=== PATIENT | female | born 1980 | race Two or more races ===

== ENCOUNTER 2017-12-21 15:47 | Emergency (ER) | payer MEDICAID ==
[~2017-12-21] VITALS: Ht 165.1 cm; Wt 93.8 kg
[~2017-12-21 15:47] MED LIST: DIAZ-351 PO; DOXY-257 PO; METH4TAB3 PO; ONDA4TAB6 PO
[2017-12-21 16:57] LABS: CLARITY,URINE SLIGHTLY CLOUDY (Clear); COLOR,URINE YELLOW (Yellow); GLUCOSE, URINE NEGATIVE (Neg); KETONES,URINE NEGATIVE (Neg); LEUKOCYTE ESTERASE ,URINE TRACE (Neg); NITRITES, URINE NEGATIVE (Neg); OCCULT BLOOD,URINE MODERATE (Neg); PH,URINE 5.5 (4.8-8.0); PROTEIN,URINE NEGATIVE (Neg); UROBILINOGEN,URINE 0.2 E.U/dL (0.2-1.0)
[2017-12-21 17:01] LABS: UA COLLECTION TYPE CLN CATCH MIDSTREAM
[2017-12-21 17:06] LABS: BASOPHILS # (AUTO) 0.1 X10'3 (0-0.2); BASOPHILS % (AUTO) 0.8 % (0-1); EOSINOPHILS # (AUTO) 0.2 X10'3 (0-0.9); EOSINOPHILS % (AUTO) 1.9 % (0-6); HEMATOCRIT 43.9 % (35.0-45.0); HEMOGLOBIN 15.1 g/dl (12.0-16.0); LYMPHOCYTES # (AUTO) 1.9 X10'3 (1.1-4.8); MEAN CORPUSCULAR HEMOGLOBIN 29.6 PG (27.0-31.0); MEAN CORPUSCULAR HGB CONC 34.4 % (33.0-36.5); MEAN CORPUSCULAR VOLUME 86.2 FL (78-98); MEAN PLATELET VOLUME 8.6 FL (7.4-10.4); MONOCYTES # (AUTO) 0.5 X10'3 (0-0.9); MONOCYTES % (AUTO) 5.7 % (2-12); NEUTROPHILS # (AUTO) 6.3 X10'3 (1.8-7.7); NEUTROPHILS % (AUTO) 70.6 % (42-75); PLATELET COUNT 279 X10'3 (140-440); RED CELL DISTRIBUTION WIDTH 13.9 % (11.5-14.5)
[2017-12-21 17:09] LABS: BACTERIA,URINE 3+ /HPF (Neg); SQUAMOUS EPITHELIAL CELL,UR MODERATE /LPF (FEW); WBC,URINE 0-4 /HPF (0-4)
[2017-12-21 17:19] LABS: ALANINE AMINOTRANSFERASE 13 U/L (12-78); ALBUMIN 4.2 G/DL (3.4-5.0); ALKALINE PHOSPHATASE 56 IU/L (46-116); ANION GAP 9 (8-16); ASPARTATE AMINO TRANSFERASE 10 U/L (10-37); BILIRUBIN,TOTAL 0.5 MG/DL (0.1-1.0); BLOOD UREA NITROGEN 12 MG/DL (7-18); BUN/CREATININE RATIO 15.2 (6.6-38.0); CHLORIDE 103 MMOL/L (99-107); CREATININE 0.79 MG/DL (0.40-0.90); GLUCOSE 91 MG/DL (70-104); POTASSIUM 3.8 MMOL/L (3.5-5.1); SODIUM 140 MMOL/L (135-145); TOTAL PROTEIN 8.5 G/DL (6.4-8.2); eGFR 83 ML/MIN
[2017-12-21] MEDS ORDERED: normal saline 1000ml 1,000 ML IV ONE (17:25)
[2017-12-21] MEDS ORDERED: ondansetron/PF 4mg/2ml inj IV ONE (17:25)
[2017-12-21] MEDS ORDERED: ketorolac trometh. 30mg/ml inj. IV ONE (17:25)
[2017-12-21 17:45] LABS: INR 1.1 INR
[2017-12-21] MEDS ORDERED: CIPR-259 PO (19:08)
[2017-12-21] MEDS ORDERED: PHEN-716 PO (19:08)
[2017-12-21 19:20] VITALS: BP 115/72
== END 2017-12-21 19:21 | disposition home or self-care (01) ==
LOC: ER 15:48
DX: N39.0 Urinary tract infection, site not specified (principal); Z90.49 Acquired absence of other specified parts of digestive tract; Z88.0 Allergy status to penicillin; Z88.5 Allergy status to narcotic agent; Z88.8 Allergy status to other drugs, medicaments and biological substances; Z79.899 Other long term (current) drug therapy
CPT/HCPCS: 36415; 74176; 80053; 81001; 85025; 85610; 87088; 96361; 96374; 96375; 99285; J1885; J2405; J7030; 99284

== ENCOUNTER 2021-11-03 15:06 | Emergency (ER) | payer OTHER, MEDICAID ==
[~2021-11-03] VITALS: Ht 165.1 cm; Wt 90.0 kg
[~2021-11-03 15:06] MED LIST changes: -DOXY-257 PO; +DOXY-327 PO; +PHEN-716 PO
[2021-11-03] MEDS ORDERED: IBUP-1984 PO (17:11)
[2021-11-03 17:29] VITALS: BP 132/86
== END 2021-11-03 17:31 | disposition home or self-care (01) ==
LOC: ER 15:06
DX: S66.812A Strain of other specified muscles, fascia and tendons at wrist and hand level, left hand, initial encounter (principal); M25.522 Pain in left elbow; R20.2 Paresthesia of skin; Z90.49 Acquired absence of other specified parts of digestive tract; Z88.0 Allergy status to penicillin; Z88.8 Allergy status to other drugs, medicaments and biological substances; Z88.6 Allergy status to analgesic agent; Z79.2 Long term (current) use of antibiotics; Z79.899 Other long term (current) drug therapy; X58.XXXA Exposure to other specified factors, initial encounter; Y93.89 Activity, other specified; Y92.89 Other specified places as the place of occurrence of the external cause; Y99.8 Other external cause status
CPT/HCPCS: 73090; 99283